=== PATIENT | male | born 1930 | race Caucasian/White ===

== ENCOUNTER 2018-01-18 09:50 | Outpatient (CLI) | payer MEDICARE ==
--- NOTE | 2018-01-18 14:25 | RAD ---
AP SKULL ONE VIEW: AP NECK ONE VIEW: CHEST ONE VIEW: ABDOMEN ONE VIEW: HISTORY: Hydrocephalus. Ventriculoperitoneal shunt. FINDINGS: A right ventriculoperitoneal shunt is apparent. There is no discontinuity of tubing along the right side of the neck or chest or entering the right upper quadrant of the abdomen. Exam is somewhat limited by patient inability to position for the imaging. Heart is enlarged. Pulmo nary vasculature are engorged. Large amount of stool throughout the colon. IMPRESSION: 1. No evidence of ventriculoperitoneal shunt disruption. 2. Cardiomegaly with mild pulmonary vascular congestion. 3. Constipation. POS: [facility]
--- NOTE | 2018-01-18 15:07 | CT ---
CT BRAIN NONCONTRAST: DATE: 01/18/18 HISTORY: 87-year-old male with G91.9 hydrocephalus, unspecified. COMPARISON: 07/02/15. FINDINGS: Again noted is the [employer] shunt catheter entering through a right frontal bur hole, traversing the right frontal lobe brain parenchyma. There is a new finding of approximately 2 x 3.5 cm patchy region of lo w attenuation in the right frontal lobe adjacent to the catheter, presumably representing encephaloma lacia and gliosis. The distal tip of the catheter crosses the anterior aspect of the septum pellucidu m and resides slightly to the left of midline within the anterior aspect of the body of the left late ral ventricle. The position of the catheter appears somewhat different from that of the previous CT, but that could be due to differences in CT slice angulation. There is no interval change in the degre e of mild to moderate dilation of the lateral ventricles bilaterally symmetrically. The temporal horn s are not dilated currently, and in fact appear to be smaller in caliber than previously. The trigone s and the occipital horns are not dilated. There is cavum septi pellucidi and cavum vergae. The third ventricle remains mildly to moderately dilated. Fourth ventricle is normal in size. There is a new finding of bilateral frontoparietotemporal subdural fluid collections with attenuation higher than that of CSF and slightly lower than that of brain parenchyma. The thickness of the subdu ral fluid collections is approximately 10 mm (1 cm). The paranasal sinuses are grossly clear superior to the mid level of the maxillary sinus. Bilateral t ympanomastoid cavities are grossly clear. Images are degraded by patient motion. No intra-axial hemor rhage. No significant mass effect or midline shift. IMPRESSION: 1. 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 These are new since the previous CT of 07/02/15. 2. Right-sided ventriculoperitoneal shunt catheter with distal tip in the left lateral ventricle. 3. No interval change in the degree of mild to moderate ventriculomegaly of the lateral and third ve ntricles. 4. Region of low attenuation, probably encephalomalacia and gliosis, in the right frontal lobe abutt ing the [employer] shunt catheter, also new since 07/02/15. Alternatively, edema could also have this appeara nce. CODE T. JN R POS: [facility]
== END 2018-01-18 09:51 | disposition home or self-care (01) ==
LOC: TBSIIMAG 09:50
PROVIDERS: ATTEND Surgery
DX: G91.9 Hydrocephalus, unspecified (principal); I62.02 Nontraumatic subacute subdural hemorrhage; I62.03 Nontraumatic chronic subdural hemorrhage; G93.89 Other specified disorders of brain; I51.7 Cardiomegaly; R09.89 Other specified symptoms and signs involving the circulatory and respiratory systems; K59.00 Constipation, unspecified; Z98.2 Presence of cerebrospinal fluid drainage device
CPT/HCPCS: 70450; 75809